=== PATIENT | female | born 1950 | race Caucasian/White ===

== ENCOUNTER → 2016-08-15 | Day surgery (SDC) | payer OTHER ==
[~2016-08-15] MED LIST: ACETAMINOPHEN PO; ADVAIR 1001 DISK W/D PO; ALBUTEROL17 GM INH; AMOXICILLIN875 MG; AMOXICILLIN875 MG PO; ASPIRIN; ASPIRIN PO; BELLADONNA; CALTRATE PLUS T1 TAB; CENTRUM PO; CIPRO PO; DILANTIN; DILANTIN PO; DONNATAL TABL16.2 MG PO; DUONEB 2.5-0.5 M3 ML NEB; EFFEXOR PO; EFFEXOR XR; EFFEXOR XR PO; FISH OIL 1,2001 CAP; FOLGARD TABLET1 EACH PO; GLUCOSAMINE; IMIPRAMINE HCL50 MG; INDOCIN SR75 MG; IRON1 TAB PO; LEVAQUIN PO; LORTAB 10/500 T1 TAB; MELATONIN3 MG; MUCINEX PO; MULTI-VITAMIN1 TAB PO; NEURONTIN; NEURONTIN PO; NEURONTIN800 MG; OMEPRAZOLE40 MG PO; OPANA ER PO; OPIUM; PERCOCET5/325 PO; PREVACID; PRILOSEC PO; REGLAN PO; SINGULAIR; SINGULAIR PO; TEGRETOL PO; TOPAMAX; TOPAMAX PO; TOPAMAX200 MG; TRAMADOL HCL50 M1; TRAMADOL HCL50 M2; TRAMADOL PO; ULTRAM PO; VICODIN PO; VIT B-12 PO; VIT E; VITAL-D RX TABL1 TAB; VITAMIN C1000 M2; ZYRTEC PO; [UNRECOGNIZED DRUG - OTHER]; [UNRECOGNIZED DRUG - OTHER]
--- NOTE | ~2016-08-15 | OR ---
Unit #: [id number] #: [id number] Patient: ROSIE GILBERT [id number] [address] [address] [id number] O MR#: [id number] NAME: ROSIE GILBERT ROOM: Date of Procedure: 08/15/2016 Admission Date: 08/15/2016 Surgeon: Fernando Fajardo M.D. : 1950 Attending Physician: Fernando Fajardo M.D. Primary Care Physician: [employer] Fuentes M.D. OPERATIVE REPORT PREOPERATIVE DIAGNOSES 1. Back pain. 2. Degenerative lumbar disk disease. 3. Spinal stenosis. 4. Radiculopathy. POSTOPERATIVE DIAGNOSES 1. Back pain. 2. Degenerative lumbar disk disease. 3. Spinal stenosis. 4. Radiculopathy. PROCEDURE PERFORMED Lumbar epidural steroid injection and fluoroscopic guidance for needle localization. INDICATIONS FOR PROCEDURE The patient is a 65-year-old female with return of significant pain in her back as was in her leg due to the previously known significant degenerative disk disease and spinal stenosis. She was last treated 7 years ago with epidural steroids and did well for almost 5 years. She had a total of 2 sets of injections over the last several years. Pain re-flared, would not settle with conservative measures. Based on history, pathology, symptomatology, and response to treatment, plan is to repeat an epidural steroid injection today. DESCRIPTION OF PROCEDURE The patient was placed in a seated position. Standard monitors were applied. Sterile prep and drape of the lumbar area was performed. The skin then at the L4 level was localized with 1% lidocaine. An 18-gauge [employer] needle was then advanced via loss of resistance technique and fluoroscopic guidance in toward the epidural space. After confirming proper positioning with fluoroscopy and radiographic contrast, a dose of 80 mg of Depo-Medrol and 4 mL of preservative-free normal saline were deposited. The patient tolerated the procedure otherwise well and was discharged to recovery room in stable condition. Dictated by... Fernando Fajardo M.D. Unit #: [id number] #: [id number] Patient: ROSIE GILBERT LHP/modl TD: 08/15/2016 23:04 JOB #: [id number] OPERATIVE REPORT Page 1 of 1 X Fernando Fajardo MD X PROCEDURE OPERATIVE NOTE
== END | disposition home or self-care (01) ==
LOC: CCSC 06:59
DX: M51.16 Intervertebral disc disorders with radiculopathy, lumbar region (principal); M48.06 Spinal stenosis, lumbar region; K21.9 Gastro-esophageal reflux disease without esophagitis; F32.9 Major depressive disorder, single episode, unspecified
CPT/HCPCS: J1040; J2250

== ENCOUNTER → 2016-08-22 | Day surgery (SDC) | payer OTHER ==
--- NOTE | ~2016-08-22 | OR ---
Unit #: [id number] #: [id number] Patient: ROSIE GILBERT [id number] [address] [address] [id number] O MR#: [id number] NAME: ROSIE GILBERT ROOM: Date of Procedure: 08/22/2016 Admission Date: 08/22/2016 Surgeon: Fernando Fajardo M.D. : 1950 Attending Physician: Fernando Fajardo M.D. Primary Care Physician: [employer] M.D. OPERATIVE REPORT PREOPERATIVE DIAGNOSES 1. Back pain. 2. Radiculopathy. 3. Spinal stenosis. 4. Degenerative disk disease. POSTOPERATIVE DIAGNOSES 1. Back pain. 2. Radiculopathy. 3. Spinal stenosis. 4. Degenerative disk disease. PROCEDURE PERFORMED Lumbar epidural steroid injection with fluoroscopic guidance for needle localization. INDICATIONS FOR PROCEDURE The patient is a 65-year-old female with return of back pain and intermittent radiculopathy associated with known degenerative disk disease. It was last treated several years ago with epidural steroids and did extremely well for greater than 5 years. She had resurgence of the symptoms and is not settled. Initial epidural steroid injection resulted in significant improvement in her symptom complex. She is not back to where she had been in the past. We are going to proceed with a second injection at this point. DESCRIPTION OF PROCEDURE The patient was placed in the seated position. Standard monitors were applied. Sterile prep and drape of the lumbar area was performed. The skin then at the L4-L5 level was localized with 1% lidocaine. An 18-gauge [employer] needle was then advanced via loss of resistance technique and fluoroscopic guidance in toward the epidural space. After confirming proper positioning with fluoroscopy and radiographic contrast, 80 mg of Depo-Medrol and 4 mL of preservative-free normal saline were deposited. The patient tolerated the procedure otherwise well and was discharged to the recovery room in stable condition. Dictated by... Fernando Fajardo M.D. [facility] [place] Unit #: [id number] #: [id number] Patient: ROSIE GILBERT TD: 08/22/2016 23:42 JOB #: [id number] OPERATIVE REPORT Page 1 of 1 X Fernando Fajardo MD X PROCEDURE OPERATIVE NOTE
== END | disposition home or self-care (01) ==
LOC: CCSC 07:02
DX: M51.16 Intervertebral disc disorders with radiculopathy, lumbar region (principal); M48.06 Spinal stenosis, lumbar region
CPT/HCPCS: J1040; J2250